=== PATIENT | female | born 1995 | race Two or more races ===

== ENCOUNTER 2020-08-14 21:49 | Emergency (ER) | payer MEDICAID ==
[~2020-08-14] VITALS: Ht 170.2 cm; Wt 67.1 kg
[2020-08-14 21:50] VITALS: BP 127/81
[2020-08-15] MEDS ORDERED: ACETAMINOPHEN 325 MG TAB PO ONE (00:30)
== END 2020-08-15 00:36 | disposition home or self-care (01) ==
LOC: ER 21:51
DX: G43.909 Migraine, unspecified, not intractable, without status migrainosus (principal)